=== PATIENT | female | born 1965 | race Caucasian/White ===

== ENCOUNTER 2018-01-16 18:33 | Emergency (ER) | payer MEDICAID ==
[2018-01-16] MEDS: IBUPROFEN 600 MG TAB PO (21:29)
[2018-01-16 22:25] LABS: URINE PH (Dip) POC 5.5 (5.0-8.5)
[2018-01-16 22:25] LABS: URINE BLOOD (Dip) POC Negative (NEGATIVE); URINE GLUCOSE (Dip) POC Negative (NEGATIVE); URINE KETONES (Dip) POC Trace (NEGATIVE); URINE LEUKOCYTE EST (Dip) POC Negative (NEGATIVE); URINE NITRITE (Dip) POC Negative (NEGATIVE); URINE TOTAL PROTEIN POC Trace (NEGATIVE)
== END 2018-01-16 23:23 | disposition home or self-care (01) ==
LOC: FTE 18:33
DX: R10.9 Unspecified abdominal pain (principal); D17.9 Benign lipomatous neoplasm, unspecified; I10 Essential (primary) hypertension; E11.9 Type 2 diabetes mellitus without complications; Z79.84 Long term (current) use of oral hypoglycemic drugs
CPT/HCPCS: 76775; 81003; 99284-25